=== PATIENT | female | born 1960 | race African-American/Black ===

== ENCOUNTER 2024-02-16 15:49 | Emergency (ER) | payer OTHER ==
[2024-02-16 16:06] VITALS: TEMP 99.1; BMI 27.3
[2024-02-16 17:37] VITALS: BP 202/113; PULSE 64; RESP 18
[2024-02-16 17:50] LABS: HEMATOCRIT 36.3 % (32.4-45.2); HEMOGLOBIN 12.4 GM/dL (10.7-15.3); MCH 31.9 pg (25.7-33.7); MEAN CELL VOLUME 93.8 fl (80-96); MEAN PLT VOLUME 8.5 fl (7.5-11.1); PLATELET COUNT 295 10^3/uL (134-434); RBC 3.87 M/mm3 (3.60-5.2); RDW 13.1 % (11.6-15.6); WHITE BLOOD COUNT 8.6 K/mm3 (4.0-10.0)
[2024-02-16 18:10] LABS: POTASSIUM 4.1 mmol/L (3.5-5.1)
[2024-02-16 18:12] LABS: CALCIUM 9.8 mg/dL (8.5-10.1)
[2024-02-16 18:13] LABS: ALBUMIN 3.7 g/dl (3.4-5.0); BLOOD UREA NITROGEN 14.2 mg/dL (7-18)
[2024-02-16 18:17] LABS: BILIRUBIN,TOTAL 0.4 mg/dL (0.2-1); TOT PROT 7.5 g/dl (6.4-8.2)
== END 2024-02-16 18:55 | disposition home or self-care (01) ==
LOC: JER 15:49
DX: I10 Essential (primary) hypertension (principal); R10.9 Unspecified abdominal pain
CPT/HCPCS: 36415; 80053; 84484; 85027; 93005; 93010; 99284-25

== ENCOUNTER 2024-12-14 19:19 | Emergency (ER) | payer OTHER ==
[2024-12-14 19:26] VITALS: BP 155/64; PULSE 62; RESP 20; TEMP 98.6; BMI 27.3
[2024-12-14] MEDS ORDERED: IBUPROFEN 400 MG TABLET (FP) PO ONE (19:55)
[2024-12-14] MEDS ORDERED: IBUPROFEN 600 MG TABLET (FP) PO ONE (19:55)
[2024-12-14] MEDS: IBUPROFEN 400 MG TABLET (FP) PO ONE (20:02)
[2024-12-14] MEDS ORDERED: NAPROXEN 500 MG TABLET ONE (20:07)
[2024-12-14] MEDS: NAPROXEN 500 MG TABLET PO ONE (20:08)
[2024-12-14] MEDS ORDERED: LIDOCAINE 5% TOPICAL PATCH ONE (20:42)
[2024-12-14] MEDS ORDERED: ACETAMINOPHEN 500 MG TABLET (FP) ONE (20:46)
[2024-12-14] MEDS: ACETAMINOPHEN 500 MG TABLET (FP) PO ONE (20:57)
[2024-12-14] MEDS: LIDOCAINE 5% TOPICAL PATCH TP ONE (20:57)
[2024-12-14] MEDS ORDERED: LIDOCAINE PATCH REMOVAL MC SCH (22:00)
== END 2024-12-14 21:00 | disposition home or self-care (01) ==
LOC: JER 19:19
DX: M25.551 Pain in right hip (principal)
CPT/HCPCS: 73502-TC-RT-FY; 99283-25